=== PATIENT | male | born 1960 | race Two or more races ===

== ENCOUNTER 2019-03-29 11:05 | Outpatient (CLI) | payer OTHER | END 2019-03-29 11:16 | disposition home or self-care (01) | LOC: RAD 11:05 | DX: H40.1133 Primary open-angle glaucoma, bilateral, severe stage (principal); H40.10X1 Unspecified open-angle glaucoma, mild stage; I10 Essential (primary) hypertension; M54.5 Low back pain; Z01.810 Encounter for preprocedural cardiovascular examination; E11.51 Type 2 diabetes mellitus with diabetic peripheral angiopathy without gangrene; E55.9 Vitamin D deficiency, unspecified; N41.0 Acute prostatitis; E78.89 Other lipoprotein metabolism disorders ==